=== PATIENT | female | born 1990 | race Caucasian/White ===

== ENCOUNTER 2023-03-13 09:58 | Outpatient (CLI) | payer OTHER | END 2023-03-13 10:58 | disposition home or self-care (01) | LOC: NST 09:58 | PROVIDERS: ATTEND Obstetrics & Gynecology Maternal & Fetal Medicine | DX: Z34.83 Encounter for supervision of other normal pregnancy, third trimester (principal) ==

== ENCOUNTER 2023-04-07 08:10 | Outpatient (CLI) | payer OTHER | END 2023-04-07 08:40 | disposition home or self-care (01) | LOC: NST 08:10 | PROVIDERS: ATTEND Obstetrics & Gynecology | DX: O46.8X3 Other antepartum hemorrhage, third trimester (principal); Z3A.37 37 weeks gestation of pregnancy ==